=== PATIENT | female | born 1960 | race Caucasian/White ===

== ENCOUNTER 2022-06-28 16:04 | Emergency (ER) | payer OTHER ==
[~2022-06-28] VITALS: Ht 170.2 cm; Wt 64.4 kg
[2022-06-28 16:56] LABS: BASOPHILS ABSOLUTE AUTO 0.07 K/mm3 (0.00-0.23); BASOPHILS PERCENT AUTO 1 % (0-2); EOSINOPHILS ABSOLUTE AUTO 0.17 K/mm3 (0.00-0.68); EOSINOPHILS PERCENT AUTO 1 % (0-6); Hematocrit 41.1 % (33.0-51.0); Hemoglobin 13.2 g/dL (11.5-16.0); IMMATURE GRAN ABSOLUTE AUTO 0.07 K/mm3 (0.00-0.10); IMMATURE GRAN PERCENT AUTO 1 % (0-1); LYMPHOCYTES ABSOLUTE AUTO 1.89 K/mm3 (0.84-5.20); LYMPHOCYTES PERCENT AUTO 13 % (21-46); MONOCYTES ABSOLUTE AUTO 0.93 K/mm3 (0.16-1.47); MONOCYTES PERCENT AUTO 7 % (4-13); Mean Corpuscular HGB 30.3 pg (26.0-34.0); Mean Corpuscular HGB Conc 32.1 g/dL (31.5-36.5); Mean Corpuscular Volume 94 fL (80-100); Mean Platelet Volume 8.8 fL (9.1-12.4); NEUTROPHILS ABSOLUTE AUTO 10.94 K/mm3 (1.96-9.15); NEUTROPHILS PERCENT AUTO 78 % (41-73); Platelet Count 562 K/mm3 (150-400); RDW Coefficient Variation 12.9 % (11.7-14.2); RDW Standard Deviation 44.8 fL (35.1-46.3); Red Blood Cell Count 4.36 M/mm3 (3.80-5.20); White Blood Cell Count 14.07 K/mm3 (4.00-11.30)
[2022-06-28 17:33] LABS: Albumin, Blood 3.5 g/dL (3.4-5.0); Albumin/Globulin Ratio 0.9 (0.8-1.8); Bilirubin, Total 0.3 mg/dL (0.1-1.0); Bun/Creatinine Ratio 21.4 (12.0-20.0); Calcium, Blood 12.5 mg/dL (8.5-10.1); Creatinine, Blood 0.8 mg/dL (0.40-1.00); Potassium, Blood 3.7 mmol/L (3.5-5.5); Total Protein, Blood 7.5 g/dL (6.4-8.2)
[2022-06-28 20:58] LABS: Magnesium, Blood 2.2 mg/dL (1.6-2.4)
[2022-06-28 23:23] LABS: Thyroid Stimulating Hormone 1.19 uIU/mL (0.360-4.800)
== END 2022-06-29 00:48 | disposition home or self-care (01) ==
LOC: ER 16:04
PROVIDERS: Physician Assistant; Student in an Organized Health Care Education/Training Program
DX: R00.2 Palpitations (principal); R00.0 Tachycardia, unspecified; R07.9 Chest pain, unspecified; Z88.0 Allergy status to penicillin; Z87.891 Personal history of nicotine dependence
CPT/HCPCS: 36415; 71046; 71260; 80053; 83690; 83735; 84443; 84484; 85025; 85379; 93005; 93010; 99284-25; Q9967

== ENCOUNTER 2023-05-07 18:58 | Emergency (ER) | payer OTHER ==
[~2023-05-07] VITALS: Ht 170.2 cm; Wt 44.5 kg
[2023-05-07 19:02] VITALS: BP 136/99
[2023-05-07 19:30] LABS: BASOPHILS ABSOLUTE AUTO 0.04 K/mm3 (0.00-0.23); BASOPHILS PERCENT AUTO 0 % (0-2); EOSINOPHILS ABSOLUTE AUTO 0.07 K/mm3 (0.00-0.68); EOSINOPHILS PERCENT AUTO 1 % (0-6); Hematocrit 33.9 % (33.0-51.0); Hemoglobin 11.1 g/dL (11.5-16.0); IMMATURE GRAN ABSOLUTE AUTO 0.08 K/mm3 (0.00-0.10); IMMATURE GRAN PERCENT AUTO 1 % (0-1); LYMPHOCYTES ABSOLUTE AUTO 0.57 K/mm3 (0.84-5.20); LYMPHOCYTES PERCENT AUTO 5 % (21-46); MONOCYTES ABSOLUTE AUTO 0.59 K/mm3 (0.16-1.47); MONOCYTES PERCENT AUTO 5 % (4-13); Mean Corpuscular HGB 33.2 pg (26.0-34.0); Mean Corpuscular HGB Conc 32.7 g/dL (31.5-36.5); Mean Corpuscular Volume 102 fL (80-100); Mean Platelet Volume 8.5 fL (9.1-12.4); NEUTROPHILS ABSOLUTE AUTO 10.75 K/mm3 (1.96-9.15); NEUTROPHILS PERCENT AUTO 89 % (41-73); Platelet Count 423 K/mm3 (150-400); RDW Coefficient Variation 13.2 % (11.7-14.2); RDW Standard Deviation 49.3 fL (35.1-46.3); Red Blood Cell Count 3.34 M/mm3 (3.80-5.20)
[2023-05-07 19:55] LABS: Albumin, Blood 3.6 g/dL (3.4-5.0); Albumin/Globulin Ratio 0.8 (0.8-1.8); Bilirubin, Total 0.2 mg/dL (0.1-1.0); Creatinine, Blood 1.04 mg/dL (0.40-1.00); Globulin, Blood 4.3 g/dL (2.2-4.0); Potassium, Blood 3.9 mmol/L (3.5-5.5); Total Protein, Blood 7.9 g/dL (6.4-8.2)
[2023-05-07] MEDS ORDERED: TIOT18 INH (23:50)
== END 2023-05-08 00:07 | disposition home or self-care (01) ==
LOC: ER 18:58
PROVIDERS: Emergency Medicine
DX: J44.9 Chronic obstructive pulmonary disease, unspecified (principal); Z85.118 Personal history of other malignant neoplasm of bronchus and lung; Z88.0 Allergy status to penicillin; Z79.899 Other long term (current) drug therapy; F17.210 Nicotine dependence, cigarettes, uncomplicated
CPT/HCPCS: 71046; 80053; 84484; 85025; 93005; 93010; 99285-25

== ENCOUNTER 2023-07-18 04:42 | Inpatient (IN) | payer OTHER ==
[~2023-07-18] VITALS: Ht 162.6 cm; Wt 48.5 kg
[2023-07-18] VITALS (23 sets, daily range): BP systolic 94–129; BP diastolic 70–85
[~2023-07-18 04:42] MED LIST: TIOT18 INH
[2023-07-18 05:11] LABS: Base Excess Venous 0.4 mmol/L; Bicarbonate Venous 25.1 mmol/L (24.0-30.0); pH Blood Venous 7.47 (7.34-7.37)
[2023-07-18 05:20] LABS: BASOPHILS PERCENT AUTO 0 % (0-2); EOSINOPHILS ABSOLUTE AUTO 0.01 K/mm3 (0.00-0.68); EOSINOPHILS PERCENT AUTO 0 % (0-6); Hematocrit 36.8 % (33.0-51.0); Hemoglobin 11.7 g/dL (11.5-16.0); IMMATURE GRAN ABSOLUTE AUTO 1.33 K/mm3 (0.00-0.10); IMMATURE GRAN PERCENT AUTO 5 % (0-1); LYMPHOCYTES ABSOLUTE AUTO 0.83 K/mm3 (0.84-5.20); LYMPHOCYTES PERCENT AUTO 3 % (21-46); MONOCYTES ABSOLUTE AUTO 1.48 K/mm3 (0.16-1.47); MONOCYTES PERCENT AUTO 6 % (4-13); Mean Corpuscular HGB 31.6 pg (26.0-34.0); Mean Corpuscular HGB Conc 31.8 g/dL (31.5-36.5); Mean Corpuscular Volume 100 fL (80-100); Mean Platelet Volume 8.9 fL (9.1-12.4); NEUTROPHILS ABSOLUTE AUTO 22.89 K/mm3 (1.96-9.15); NEUTROPHILS PERCENT AUTO 86 % (41-73); Platelet Count 454 K/mm3 (150-400); RDW Coefficient Variation 14.4 % (11.7-14.2); RDW Standard Deviation 52.4 fL (35.1-46.3); White Blood Cell Count 26.64 K/mm3 (4.00-11.30)
[2023-07-18 05:32] LABS: Albumin, Blood 2.6 g/dL (3.4-5.0); Albumin/Globulin Ratio 0.6 (0.8-1.8); Bilirubin, Total 0.6 mg/dL (0.1-1.0); Calcium, Blood 9.4 mg/dL (8.5-10.1); Creatinine, Blood 0.97 mg/dL (0.40-1.00); Globulin, Blood 4.7 g/dL (2.2-4.0); Potassium, Blood 4.3 mmol/L (3.5-5.5); Total Protein, Blood 7.3 g/dL (6.4-8.2)
[2023-07-18 05:50] LABS: BAND PERCENT MAN 1 % (0-8); BASOPHILS PERCENT MAN 0 % (0-2); EOSINOPHILS ABSOLUTE MAN 0.26 K/mm3 (0.00-0.68); EOSINOPHILS PERCENT MAN 1 % (0-6); LYMPHOCYTES ABSOLUTE MAN 0.26 K/mm3 (0.84-5.20); LYMPHOCYTES PERCENT MAN 1 % (21-46); METAMYELOCYTE ABSOLUTE MAN 0.53 K/mm3 (0.00-0.00); METAMYELOCYTE PERCENT MAN 2 % (0-0); MONOCYTES ABSOLUTE MAN 1.06 K/mm3 (0.16-1.47); MONOCYTES PERCENT MAN 4 % (4-13); SEG NEUTROPHILS PERCENT MAN 91 % (41-73); TOTAL CELLS COUNTED 100
[2023-07-18 05:58] LABS: Influenza A, PCR NEGATIVE (NEGATIVE); Influenza B, PCR NEGATIVE (NEGATIVE); Resp Syncytial Virus, PCR NEGATIVE (NEGATIVE); SARS-Cov-2 (COVID-19) PCR, MMC NEGATIVE (NEGATIVE)
[2023-07-18] MEDS ORDERED: TRAZ50 PO (09:54)
[2023-07-18] MEDS ORDERED: MIRT15 PO (09:55)
--- NOTE | 2023-07-18 14:45 | NUR ---
PT ARRIVED IN THE ROOM FROM [facility] VIA GURANDREY REPORT RECEIVED FROM KRIS MARTINEZ, PT ABLE TO STAND AND USE THE BEDSIDE COMMODE TO URINATE THEN BACK IN BED. PT ON 2L OF 02 SATS ABOVE 95% MILD SOB WITH EXERTION, GENERALIZED WEAKNESS. VITALS HRR SR 90'S, SBP SOFT 90-100'S, PT WAS GIVEN BOLUS IN THE ER LACTIC WAS BACK DOWN TO 1.3, AFEBRILE. PT HAS CONSISTENT CP ON LEFT SIDE PT STATED ITS NORMAL DUE TO CANCER HEATING PAD IN PLACE PER REQUEST, TYLENOL WAS GIVEN FOR HEADACHE WELL. PT HAS LOOSE BOTTOM FRONT TOOTH DNETAL HYGIENIST CALLED AND WAS ABLE TO SEE PT RECOMMENDED [facility] SOFT DIET FOR NOW AND WILL GET DENTIST REFERRAL. PT RESTING RIGHT NOW, CALL LIGHTS IN REACH WILL CONTINUE TO MONITOR
[2023-07-18] MEDS ORDERED: KEPPRA250 M1 PO (14:58)
[2023-07-18] MEDS ORDERED: EUTHYROX50 MCG PO (14:59)
[2023-07-18] MEDS ORDERED: PRED20 PO (14:59)
[2023-07-18] MEDS ORDERED: IBUP800 PO (15:00)
[2023-07-18] MEDS ORDERED: Norco 5-325 Ta1 EACH PO (15:00)
[2023-07-18] MEDS ORDERED: SENNA LAXATIVE8.6 MG PO (15:01)
[2023-07-18] MEDS ORDERED: ONDA4ODT MM (15:01)
[2023-07-18] MEDS ORDERED: AMLO5 PO (15:03)
--- NOTE | 2023-07-18 18:05 | NUR ---
NO ACUTE CHANGE SINCE LAST NOTE. PT RESTED FOR THE REST OF THE SHIFT VITALS HAS BEEN STABLE, NO COMPLAINS AT THIS TIME, DAUGHTER AT THE BEDSIDE AWARE OF THE PLAN. PT ATE DINNER WITH NO ISSUES HAS BEEN AMBULATING TO THE BATHROOM SBA FOR TOILETING. PT CALLS APPROPRIATELY. WILL REPORT TO ONCOMING SHIFT
[2023-07-19 03:35] VITALS: BP 127/95
[2023-07-19 03:57] LABS: Hematocrit 35.3 % (33.0-51.0); Hemoglobin 11.1 g/dL (11.5-16.0); Mean Corpuscular HGB 32.2 pg (26.0-34.0); Mean Corpuscular HGB Conc 31.4 g/dL (31.5-36.5); Mean Corpuscular Volume 102 fL (80-100); Mean Platelet Volume 8.9 fL (9.1-12.4); Platelet Count 365 K/mm3 (150-400); RDW Coefficient Variation 14.6 % (11.7-14.2); RDW Standard Deviation 54.6 fL (35.1-46.3); Red Blood Cell Count 3.45 M/mm3 (3.80-5.20)
[2023-07-19 04:23] LABS: Albumin, Blood 2.3 g/dL (3.4-5.0); Albumin/Globulin Ratio 0.5 (0.8-1.8); Bilirubin, Total 0.2 mg/dL (0.1-1.0); Bun/Creatinine Ratio 34.8 (12.0-20.0); Calcium, Blood 9.2 mg/dL (8.5-10.1); Creatinine, Blood 0.86 mg/dL (0.40-1.00); Globulin, Blood 4.7 g/dL (2.2-4.0); Potassium, Blood 4.1 mmol/L (3.5-5.5)
--- NOTE | 2023-07-19 05:14 | NUR ---
SHIFT SUMMARY PT A&Ox4, CALLS AND COMMUNICATES NEEDS APPROPRIATELY. BP STABLE, SINUS 90's, DENIES CP/PRESSURE. SpO2> 92% RA, DESATURATES TO 88% AT TIMES WHILE ASLEEP - PLACED ON 2L VIA NC, DENIES SOB. PT WITH INTERMITTENT C/O CHEST DISCOMFORT SECONDARY TO LUNG CA. CONTINENT OF URINE, SBA TO BATHROOM, NO BM THIS SHIFT. NO OTHER EVENTS, WILL REPORT TO ONCOMING RN.
[2023-07-19 05:45] LABS: BAND PERCENT MAN 3 % (0-8); BASOPHILS PERCENT MAN 0 % (0-2); EOSINOPHILS PERCENT MAN 0 % (0-6); LYMPHOCYTES ABSOLUTE MAN 0.21 K/mm3 (0.84-5.20); LYMPHOCYTES PERCENT MAN 1 % (21-46); METAMYELOCYTE ABSOLUTE MAN 0.42 K/mm3 (0.00-0.00); METAMYELOCYTE PERCENT MAN 2 % (0-0); MONOCYTES ABSOLUTE MAN 0.64 K/mm3 (0.16-1.47); MONOCYTES PERCENT MAN 3 % (4-13); MYELOCYTE ABSOLUTE MAN 0.42 K/mm3 (0.00-0.00); MYELOCYTE PERCENT MAN 2 % (0-0); NEUTROPHILS ABSOLUTE MAN 19.68 K/mm3 (1.96-9.15); SEG NEUTROPHILS PERCENT MAN 89 % (41-73); TOTAL CELLS COUNTED 100
[2023-07-19 07:57] VITALS: BP 113/91
--- NOTE | 2023-07-19 12:20 | NUR ---
MORNING CARE NOTE THIS RN ASSUMED CARE AT APPROX 0715. PT AOX4. WITHDRAWN THIS MORNING, COOPERATIVE WITH CARE AND RECEPTIVE TO EDUCATION. VSS. TELEMETRY SHOWING SINUS TACH 110'S. PT REPORTS NO CHEST PAIN OR PRESSURE RELATED TO CARDIAC ISSUES. BP STABLE. PT CURRENTLY ON ROOM AIR, SATS >90%. REPORTS MILD CHEST PAIN RELATED TO LUNG CANCER AND L PLEURAL EFFUSION. DYSPNEIC AT REST. REPORTS THAT HER CHEST "FEELS HEAVIER THAN BEFORE." HOME O2 EVAL COMPLETED. THIS RN CONTACTED MD DALE AROUND 1140 REGARDING INCREASED WORK OF BREATHING AND REPORTED HEAVINESS. PT STATES THAT SHE DOES NOT FEEL COMFORTABLE DISCHARGING HOME TODAY. RCVD ORDER FOR STATUS CHANGE, MEDICAL WITH TELEMETRY. MD DALE TO POSSIBLY CONSULT ONCOLOGY WHILE SHE IS ADMITTED IN THE HOSPITAL. VOIDING. IV ABX INFUSED THIS MORNING. CALL LIGHT IN REACH.
--- NOTE | 2023-07-19 12:31 | NUR ---
UPDATE REPORT GIVEN TO ACCEPTING RN ON MEDICAL FLOOR. THIS RN TO NOTIFY PT OF STATUS CHANGE AND TRANSFER TO NEW ROOM.
--- NOTE | 2023-07-19 15:52 | NUR ---
RN TO RN REPORT FROM PCU NURSE ANNA AT 1230. PATIENT TRANSFERRRED TO UNIT AT 1255. SHE IS AOX4 PLEASANT AND COOPERATIVE WITH CARE. NO ACUTE EVENTS DURING THIS SHIFT SINCE ON UNIT. BED IN LOW POSITION. PATIENT INDEPENDENT IN ROOM, CALLS APPROPRIATELY. CALL LIGHT IN REACH. WILL CONTINUE TO MONITOR.
[2023-07-19 16:06] VITALS: BP 128/92
--- NOTE | 2023-07-19 17:25 | NUR ---
WALKED PATIENT IN [place] WITH WALKER APPROX 300 FEET. PATIENT STEADY ON FEET, DENIES ANY DIZZINESS, LIGHTHEADEDNESS OR INCREASE OF SHORTNESS OF BREATH. SHE STATES HER BACK PACK IS RELIEVED BY THE WALK.
[2023-07-19 20:48] VITALS: BP 121/90
--- NOTE | 2023-07-19 21:00 | NUR ---
CALL TO HOSPITALIST; CALLED ERIK MUNOZ IN REGARDS TO PTS HEART RATE SPIKING TO THE 150-170'S AND HOLDING FOR 15 SECONDS EVER COUPLE OF MINUTES. WELL THE PT'S HEART RATE WAS ONLY GETTING LOW 120'S. PER ERIK MUNOZ, OBTAIN EKG WHEN HER HEART RATE IS IN THE 120'S AND NOTIFY HOSPITALIST OF RESULTS.
--- NOTE | 2023-07-19 21:20 | NUR ---
CALL TO ERIK HOSPITALIST; CALLED ERIK TO READ EKG RESULTS BACK, PER ERIK PAIRER INSPECTOR START NS AT 100 MLS/HR.
[2023-07-20 04:21] VITALS: BP 144/103
[2023-07-20 05:22] LABS: BASOPHILS ABSOLUTE AUTO 0.02 K/mm3 (0.00-0.23); BASOPHILS PERCENT AUTO 0 % (0-2); EOSINOPHILS PERCENT AUTO 0 % (0-6); Hematocrit 29.8 % (33.0-51.0); Hemoglobin 9.4 g/dL (11.5-16.0); IMMATURE GRAN ABSOLUTE AUTO 0.44 K/mm3 (0.00-0.10); IMMATURE GRAN PERCENT AUTO 3 % (0-1); LYMPHOCYTES ABSOLUTE AUTO 0.32 K/mm3 (0.84-5.20); LYMPHOCYTES PERCENT AUTO 2 % (21-46); MONOCYTES ABSOLUTE AUTO 0.48 K/mm3 (0.16-1.47); MONOCYTES PERCENT AUTO 3 % (4-13); Mean Corpuscular HGB 31.5 pg (26.0-34.0); Mean Corpuscular HGB Conc 31.5 g/dL (31.5-36.5); Mean Corpuscular Volume 100 fL (80-100); Mean Platelet Volume 8.7 fL (9.1-12.4); NEUTROPHILS ABSOLUTE AUTO 14.96 K/mm3 (1.96-9.15); NEUTROPHILS PERCENT AUTO 92 % (41-73); Platelet Count 358 K/mm3 (150-400); RDW Coefficient Variation 14.2 % (11.7-14.2); Red Blood Cell Count 2.98 M/mm3 (3.80-5.20); White Blood Cell Count 16.22 K/mm3 (4.00-11.30)
[2023-07-20 06:00] LABS: Calcium, Blood 9.3 mg/dL (8.5-10.1); Creatinine, Blood 0.75 mg/dL (0.40-1.00); Potassium, Blood 3.9 mmol/L (3.5-5.5)
[2023-07-20 06:57] VITALS: BP 127/89
--- NOTE | 2023-07-20 07:40 | NUR ---
SHIFT SUMMARY; NO ACUTE CHANGES OTHER THAN PTS HEART RATE SPIKING AT THE BEGINNING OF SHIFT. REFER TO PREVIOUS NOTE FOR FURTHER DETAIL REGARDING PTS CARDIAC EVENT. NS WAS STARTED AT 100MLS/HR PER ERIK SECONDARY SPANISH TEACHER A RESULT OF THE PTS HEART RATE SPIKING. PT WAS VERY RELUCTANT TO ALLOW THIS SHE WAS CONCERNED THAT THE FLUID WOULD ONLY WORSEN HER PLEURAL EFFUSION. AFTER NS WAS STARTED THE PTS RESTING HEART RATE WENT FROM 120'S TO THE 80'S. HOWEVER, AT 0600 THE PT REQUESTED THAT THE NS BE STOPPED SHE WAS TOO CONCERNED THAT WE WERE ONLY WORSENING HER LUNGS BY GIVING HER NS. I AUSCULTATED THE PTS LUNGS AFTER NS WAS GIVEN AND HEARD NO CHANGE, WELL THE PTS O2 SATURATION HAD NOT CHANGED. THE PT IS AXO X4 AND A STANDBY ASSIST TO THE BATHROOM. THE PT HAS ENDORSED SOME CHEST PAIN THAT SHE RELATED TO HER LUNGS/ LUNG CANCER. THE PT IS VERY CONCERNED ABOUT HER MEDICATION REGIME AND WOULD LIKE TO MEET WITH A ONCOLOGIST. PT WOULD APPRECIATE A VISIT WITH THE HOSPITALIST TO ASK SOME QUESTIONS REGARDING HER PLAN OF CARE. THE PT DENIES ANY SOB, CHEST PAIN/PRESSURE OR N/V PRESENTLY. CURRENTLY THE PT IS LAYING IN BED WITH THE BED IN THE LOWEST POSITION AND THE CALL LIGHT AT BEDSIDE. FIRE SAFETY ROUNDS COMPLETED T/O THE NIGHT.
[2023-07-20] MEDS ORDERED: CEFP200 PO (15:46)
[2023-07-20 16:21] VITALS: BP 144/105
--- NOTE | 2023-07-20 18:38 | NUR ---
DISCHARGE SUMMARY PATIENT WITH NO ACUTE EVENTS DURING SHIFT. SHE STATES HER CHEST HEAVINESS AND SHORTNESS OF BREATH IS BASELINE BEFORE SHE FELT SHE NEEDED TO COME IN. PATIENT VERBALIZES HER DESIRE TO GO HOME TODAY. SHE IS UP WITH PT TODAY WALKING HALWAY ON ROOM AIR. MEDICATION AND EDUCATION PACKET PRINTED AND GIVEN TO PATIENT AND DAUGHTER. ALL QUESTIONS ANSWERED. CONSENTS SIGNED. PATIENT LEFT UNIT AT 1635 VIA WHEELCHAIR WITH VOICE OVER ANNOUNCERMichell HAU AND DAUGHTER. LEAVING HOSPITAL VIA PRIVATE VEHICLE WITH DAUGHTER AT [facility].
== END 2023-07-20 16:43 | disposition home health service (06) | DRG 871 ==
LOC: ER 04:42 → PCU 08:50 → MEDS 07-19 13:07
PROVIDERS: Emergency Medicine; ADMIT Internal Medicine
DX: A41.9 Sepsis, unspecified organism (principal); J18.9 Pneumonia, unspecified organism; J96.01 Acute respiratory failure with hypoxia; C34.90 Malignant neoplasm of unspecified part of unspecified bronchus or lung; C79.31 Secondary malignant neoplasm of brain; J44.0 Chronic obstructive pulmonary disease with (acute) lower respiratory infection; J90 Pleural effusion, not elsewhere classified; E87.3 Alkalosis; E87.20 Acidosis, unspecified; R65.20 Severe sepsis without septic shock; I10 Essential (primary) hypertension; E03.9 Hypothyroidism, unspecified; F17.200 Nicotine dependence, unspecified, uncomplicated; Z88.0 Allergy status to penicillin; Z11.52 Encounter for screening for COVID-19; Z79.899 Other long term (current) drug therapy
CPT/HCPCS: 0241U; 36415; 70450; 71045; 71260; 80048; 80053; 82803; 83605; 83880; 84145; 84484; 85025; 85379; 87040; 87449; 93005; 93010; 94761; 96361; 96365-59; 96367; 96375-59; 97116; 97161; 97530; 99285-25; A9270; J0456; J0696; J1644; J3010; J7030; J7050; J7120; Q9967